=== PATIENT | male | born 1970 | race Caucasian/White ===

== ENCOUNTER 2022-12-13 21:41 | Emergency (ER) | payer SELFPAY ==
[2022-12-13 22:44] LABS: Hematocrit 41.2 % (39.6-49.0); MPV 7.4 fL (7.6-11.3); Platelets 268 thou/uL (152-406); RBC Red Blood Cell Count 4.63 M/uL (4.33-5.43)
[2022-12-13 22:46] LABS: Protime INR 1.13
[2022-12-13 23:03] LABS: Magnesium 2.3 mg/dL (1.6-2.4); Potassium 3.6 mEq/L (3.5-5.1); Troponin High Sensitivity 7.5 pg/mL (<58.9)
[2022-12-13] MEDS ORDERED: KETOROLAC 30 MG/ML INJ ONE (23:36)
[2022-12-13] MEDS ORDERED: NA CHLORIDE 0.9% 1,000 ML ONE (23:36)
--- NOTE | 2022-12-14 01:01 | EDPHYS ---
Physician Documentation [facility] Name: Amilcar Champion Age: 52 yrs Sex: Male : 1970 Arrival Date: 12/13/2022 Time: 21:41 Bed 17 Private MD: ED Physician Brian Tristan HPI: 12/13 22:20 This 52 yrs old Male presents to ER via Ambulatory with complaints of Arm Pain, Flank cp Pain. 22:20 The patient or guardian complains of pain, that is acute, swelling, tenderness. The cp complaints affect the left shoulder and left arm. Historical: - Allergies: 22:09 No Known Allergies; pf1 - PMHx: 22:09 Asthma; pf1 - PSHx: 22:09 None; pf1 - Immunization history:: Adult Immunizations up to date, Client reports having NOT received the Covid vaccine. Last tetanus immunization: < 10 years ago Flu vaccine is not up to date. - Social history:: Smoking status: Patient denies any tobacco usage or history of. Patient/guardian denies using alcohol, street drugs. ROS: 22:25 Constitutional: Negative for body aches, chills, fever, poor PO intake. cp Exam: 22:46 ECG was reviewed by the Attending Physician. cp Vital Signs: 22:03 BP 158 / 107; Pulse 104; Resp 18; Temp 98.4; Pulse Ox 96% on R/A; Weight 68.04 kg; pf1 Height 5 ft. 7 in. ; Pain 7/10; 22:30 BP 155 / 103; Pulse 96; Resp 18 S; Pulse Ox 96% on R/A; ha1 23:09 BP 170 / 95; Pulse 98; Resp 18; Temp 98.1; Pulse Ox 100% ; sm8 23:57 BP 151 / 96; Pulse 85; Resp 18 S; Pulse Ox 98% on R/A; ha1 22:03 Body Mass Index 23.49 (68.04 kg, 170.18 cm) pf1 22:03 Pain Scale: Adult pf1 MDM: 22:04 Patient medically screened. cp 12/13 22:11 Order name: Basic Metabolic Panel; Complete Time: 23:17 cp 12/14 00:35 Interpretation: Normal except: CL 108; GLUC 114; BUN 19; GFR 72; CA 8.3. cp 12/13 22:11 Order name: CBC with Diff; Complete Time: 23:17 cp 12/14 00:35 Interpretation: Abnormal: WBC 11.70; MPV 7.4; NEUT A 8.2. cp 12/13 22:11 Order name: D-Dimer; Complete Time: 23:17 cp 12/14 00:35 Interpretation: Reviewed. cp 12/13 22:11 Order name: Magnesium; Complete Time: 23:17 cp 12/13 22:11 Order name: NT PRO-BNP; Complete Time: 23:17 cp 12/13 22:11 Order name: PT-INR; Complete Time: 23:17 cp 12/13 22:11 Order name: Troponin HS; Complete Time: 23:17 cp 12/13 22:11 Order name: XRAY Chest (1 view) cp 12/13 22:11 Order name: US Extremity Venous Unilateral Ltd cp 12/13 23:19 Order name: CT Chest For PE Angio cp 12/13 22:11 Order name: EKG; Complete Time: 22:12 cp 12/13 22:11 Order name: Cardiac monitoring; Complete Time: 22:36 cp 12/13 22:11 Order name: EKG - Nurse/Tech; Complete Time: 22:42 cp 12/13 22:11 Order name: IV Saline Lock; Complete Time: 22:42 cp 12/13 22:11 Order name: Labs collected and sent; Complete Time: 22:36 cp 12/13 22:11 Order name: O2 Per Protocol; Complete Time: 22:36 cp 12/13 22:11 Order name: O2 Sat Monitoring; Complete Time: 22:36 cp 12/14 00:59 Order name: Sling cp EC:46 Rate is 96 beats/min. Rhythm is regular. VT interval is normal. QRS interval is normal. cp QT interval is normal. T waves are Inverted in lead aVR. Interpreted by me. Reviewed by me. Administered Medications: 23:20 Drug: Ketorolac IVP 15 mg Route: IVP; Site: right forearm; 12/14 01:09 Follow up: Response: No adverse reaction [facility] 12/13 23:20 Drug: NS 0.9% IV 1000 ml Route: IV; Rate: 1 bolus; Site: right forearm; 12/14 01:09 Follow up: Response: No adverse reaction; IV Status: Completed infusion; IV Intake: ha1 1000ml Disposition: 02:28 Co-signature as Attending Physician, Brian Tristan MD I reviewed the patient's care rt provided by the Advanced Practice Provider and agree with the diagnosis and treatment plan. Disposition Summary: 12/14/22 01:01 Discharge Ordered Location: Home cp Problem: new cp Symptoms: have improved cp Condition: Stable cp Diagnosis - Strain of other muscles, fascia and tendons at shoulder and upper arm level, left cp arm - Strain of muscle and tendon of back wall of thorax, initial encounter cp Followup: cp - With: Private Physician - When: 2 - 3 days - Reason: Recheck today's complaints Discharge Instructions: - Discharge Summary Sheet cp - Muscle Strain cp - Thoracic Strain cp Forms: - Medication Reconciliation Form cp - Thank You Letter cp - Antibiotic Education cp - Prescription Opioid Use cp - Patient Portal Instructions cp - Leadership Thank You Letter cp Prescriptions: - Cyclobenzaprine 10 mg Oral Tablet - take 1 tablet by ORAL route every 8 hours As needed; 30 tablet; Refills: 0, cp Product Selection Permitted - Diclofenac Sodium 75 mg Oral Tablet Sustained Release - take 1 tablet by ORAL route 2 times per day; 30 tablet; Refills: 0, Product cp Selection Permitted Addendum: 12/15/2022 01:00 Addendum: HPI: Patient is a 52-year-old male with past medical history significant for c p asthma. Patient presents to the emergency department with complaints of pain and swelling to left arm and left side of chest. Patient reports 4 to 5 days ago he was changing the brakes on his truck and as he lifted one of the large tires and turned felt a pop in his left upper back. Patient reports he had some pain that has continued to progress over the last several days, he has had swelling of his left arm and comes in concerned about a possible blood clot. Patient denies any direct trauma. Signatures: Dispatcher [employer] EDMS Keith Steiner PA PA cp Vivi Iglesias RN RN ha1 Brian Tristan MD MD rt Margy Leblanc RN RN pf1
--- NOTE | 2022-12-14 01:01 | ER ---
Nurse's Notes [facility] Name: Amilcar Champion Age: 52 yrs Sex: Male : 1970 Arrival Date: 12/13/2022 Time: 21:41 Bed 17 Private MD: Diagnosis: Strain of other muscles, fascia and tendons at shoulder and upper arm level, left arm;Strain of muscle and tendon of back wall of thorax, initial encounter Presentation: 12/13 22:03 Chief complaint: Patient states: bruising to left arm/bicep with pain and swelling and pf1 contusion to left lower lateral rib cage,onset 4-5 days ago. Patient stated was changing his brakes on his truck when he felt a pop from left shoulder. Patient denies any injury. Coronavirus screen: Vaccine status: Patient reports being unvaccinated. Client denies travel out of the [place] in the last 14 days. At this time, the client does not indicate any symptoms associated with coronavirus-19. Ebola Screen: Patient negative for fever greater than or equal to 101.5 degrees Fahrenheit, and additional compatible Ebola Virus Disease symptoms. Initial Sepsis Screen: Does the patient meet any 2 criteria? HR > 90 bpm. Does the patient have a suspected source of infection? No. Patient's initial sepsis screen is negative. Risk Assessment: Do you want to hurt yourself or someone else? Patient reports no desire to harm self or others. 22:03 Method Of Arrival: Ambulatory pf1 22:03 Acuity: BARBARA 3 pf1 Triage Assessment: 21:54 General: Appears comfortable, Behavior is calm, cooperative. Pain: Complains of pain in ha1 left arm Pain does not radiate. Pain currently is 9 out of 10 on a pain scale. Quality of pain is described as pressure, Pain began five days ago. Neuro: Level of Consciousness is awake, alert, obeys commands, Oriented to person, place, time, situation. Cardiovascular: Heart tones S1 S2 present Capillary refill < 3 seconds Patient's skin is warm and dry. Rhythm is sinus rhythm. Respiratory: Airway is patent Respiratory effort is even, unlabored, Respiratory pattern is regular, symmetrical. Musculoskeletal: Range of motion: limited in left shoulder Reports pain in left arm. Historical: - Allergies: 22:09 No Known Allergies; pf1 - PMHx: 22:09 Asthma; pf1 - PSHx: 22:09 None; pf1 - Immunization history:: Adult Immunizations up to date, Client reports having NOT received the Covid vaccine. Last tetanus immunization: < 10 years ago Flu vaccine is not up to date. - Social history:: Smoking status: Patient denies any tobacco usage or history of. Patient/guardian denies using alcohol, street drugs. Screenin:11 [facility] ED Fall Risk Assessment (Adult) History of falling in the last 3 months, pf1 including since admission No falls in past 3 months (0 pts) Confusion or Disorientation No (0 pts) Intoxicated or Sedated No (0 pts) Impaired Gait No (0 pts) Mobility Assist Device Used No (0 pt) Altered Elimination No (0 pt) Score/Fall Risk Level 0 - 2 = Low Risk Oriented to surroundings, Maintained a safe environment, Educated pt \T\ family on fall prevention, incl call for assistance when getting out of bed, Assessed \T\ reinforced patient's understanding of fall precautions, Provided non-skid footwear, Hourly rounding (assess needs \T\ fall precautionary measures) done, Used ambulatory aids as needed (educated on \T\ assisted with), Used gait belt as appropriate. Abuse screen: Denies threats or abuse. Nutritional screening: No deficits noted. Tuberculosis screening: No symptoms or risk factors identified. Assessment: 21:57 Reassessment: see triage assessment. ha1 22:50 Reassessment: Patient and/or family updated on plan of care and expected duration. Pain ha1 level reassessed. Patient is alert, oriented x 3, equal unlabored respirations, skin warm/dry/pink. 23:35 Reassessment: Patient and/or family updated on plan of care and expected duration. Pain ha1 level reassessed. Patient is alert, oriented x 3, equal unlabored respirations, skin warm/dry/pink. back from CT. 12/14 00:35 Reassessment: Patient and/or family updated on plan of care and expected duration. Pain ha1 level reassessed. Patient is alert, oriented x 3, equal unlabored respirations, skin warm/dry/pink. Vital Signs: 12/13 22:03 BP 158 / 107; Pulse 104; Resp 18; Temp 98.4; Pulse Ox 96% on R/A; Weight 68.04 kg; pf1 Height 5 ft. 7 in. ; Pain 7/10; 22:30 BP 155 / 103; Pulse 96; Resp 18 S; Pulse Ox 96% on R/A; ha1 23:09 BP 170 / 95; Pulse 98; Resp 18; Temp 98.1; Pulse Ox 100% ; sm8 23:57 BP 151 / 96; Pulse 85; Resp 18 S; Pulse Ox 98% on R/A; ha1 22:03 Body Mass Index 23.49 (68.04 kg, 170.18 cm) pf1 22:03 Pain Scale: Adult pf1 ED Course: 21:46 Patient arrived in ED. es 21:49 Keith Steiner PA is PHCP. cp 21:50 Brian Tristan MD is Attending Physician. cp 21:55 Patient has correct armband on for positive identification. Placed in gown. Bed in low ha1 position. Call light in reach. Side rails up X 1. 22:09 Triage completed. pf1 22:15 Inserted saline lock: 22 gauge in right forearm, using aseptic technique. Blood ha1 collected. 22:18 Vivi Iglesias, RN is Primary Nurse. ha1 22:36 Basic Metabolic Panel Sent. ha1 22:36 CBC with Diff Sent. ha1 22:36 D-Dimer Sent. ha1 22:36 Magnesium Sent. ha1 22:36 NT PRO-BNP Sent. ha1 22:36 PT-INR Sent. ha1 22:36 Troponin HS Sent. ha1 22:42 Basic Metabolic Panel Sent. ha1 22:42 CBC with Diff Sent. ha1 22:42 D-Dimer Sent. ha1 22:42 Magnesium Sent. ha1 22:42 NT PRO-BNP Sent. ha1 22:42 PT-INR Sent. ha1 22:42 Troponin HS Sent. ha1 22:49 US Extremity Venous Unilateral Ltd In Process Unspecified. EDMS 22:52 XRAY Chest (1 view) In Process Unspecified. EDMS 23:45 CT Chest For PE Angio In Process Unspecified. EDMS 08 01:17 No provider procedures requiring assistance completed. ha1 01:17 IV discontinued, intact, bleeding controlled, No redness/swelling at site. Pressure ha1 dressing applied. Administered Medications: 12/13 23:20 Drug: Ketorolac IVP 15 mg Route: IVP; Site: right forearm; ha1 08/21 01:09 Follow up: Response: No adverse reaction ha1 12/13 23:20 Drug: NS 0.9% IV 1000 ml Route: IV; Rate: 1 bolus; Site: right forearm; ha1 12/14 01:09 Follow up: Response: No adverse reaction; IV Status: Completed infusion; IV Intake: ha1 1000ml Medication: 01:17 VIS not applicable for this client. ha1 Intake: 01:09 IV: 1000ml; Total: 1000ml. ha1 Outcome: 01:01 Discharge ordered by . jose 01:17 Patient left the ED. ha1 01:17 Discharged to home ambulatory. ha1 01:17 Condition: stable 01:17 Discharge instructions given to patient, Instructed on discharge instructions, follow up and referral plans. medication usage, Demonstrated understanding of instructions, follow-up care, medications, Prescriptions given X 2. Signatures: Dispatcher [employer] Batsheva Briseno Corey, PA PA cp Ayala, Heidy, RN RN 1 Margy Leblanc RN RN 1 Shanice Garcia 8 Corrections: (The following items were deleted from the chart) 12/13 23:57 23:30 Reassessment: Patient and/or family updated on plan of care and expected ha1 duration. Pain level reassessed. Patient is alert, oriented x 3, equal unlabored respirations, skin warm/dry/pink. back from CT ha1
[2022-12-14 01:56] VITALS: TEMP 98.1
[2022-12-14 01:58] VITALS: BP 151/96; O2SAT 98
--- NOTE | 2022-12-14 14:45 | RAD REPORT ---
EXAM DESCRIPTION: CT - Chest For Pe Angio - 12/14/2022 6:43 am CLINICAL HISTORY: 52 years, Male, left upper back pain COMPARISON: None. TECHNIQUE: Multiple transaxial tomograms of the chest were obtained from the lung apices through the lung bases utilizing 2 mm slice thickness at 2 mm interval reconstruction after the administration o f large bolus of IV contrast for complete opacification of the pulmonary arteries. Subsequent 3-D maximum intensity projection images were generated in the coronal and sagittal plane f or review. This exam was performed according to our departmental dose-optimization protocol, which includes auto mated exposure control, adjustment of the mA and/or kV according to patient size and/or use of iterat shahid reconstruction technique. FINDINGS: The lungs parenchyma demonstrate demonstrate to be clear. No masses, nodules and/or consol idations are identified. The trachea mainstem bronchus demonstrate to be normal. There is no significant pericardial or pleura l effusions. The thoracic aorta demonstrate to be unremarkable. The heart is normal in size. There are very minima l coronary artery calcification LAD. There is no significant mediastinal and/or hilar lymphadenopathy. The axillary regions demonstrate to be clear. Pulmonary arteries demonstrate to be normal, no intraluminal defect are seen that would suggest pulmo nary embolus. The bone windows demonstrate no significant skeletal lesions. The visualized portions of the upper abdomen demonstrate to be unremarkable. IMPRESSION: No evidence of pulmonary embolus and/or thoracic aortic dissection. Otherwise unremarkable CT scan of the chest with contrast. Electronically signed by: Jefry Centeno MD 12/13/2022 11:54 PM CDT Due to temporary technical issues with the PACS/Fluency reporting system, reports are being signed by the in house radiologist without review as a courtesy to ensure prompt reporting. The interpreting r adiologist is fully responsible for the content of the report.
--- NOTE | 2022-12-14 14:48 | RAD REPORT ---
EXAM DESCRIPTION: US - Extremity Venous Uni Ltd - 12/13/2022 10:47 pm CLINICAL HISTORY: 52 years Male, Pain;Swelling left upper extremity swelling TECHNIQUE: Malloy scale ultrasound, color Doppler and spectral Doppler were utilized to evaluate the l eft upper extremity deep venous systems. COMPARISON: None. FINDINGS: There is normal color filling, compression and respiratory variation in the visualized lef t internal jugular vein. There is normal color filling and respiratory variation in the left subclavi an vein. The left axillary and brachial vein has normal color filling and compression. Radial and u lnar veins are patent. Patent basilic and cephalic veins with normal compression and normal directional flow. Note that t he basilic and cephalic veins are part of the superficial venous system of the upper extremity. IMPRESSION: 1. No evidence for deep venous thrombosis of left upper extremity. Electronically signed by: Fransisco iWlburn MD 12/13/2022 11:17 PM CDT Due to temporary technical issues with the PACS/Fluency reporting system, reports are being signed by the in house radiologist without review as a courtesy to ensure prompt reporting. The interpreting r adiologist is fully responsible for the content of the report.
--- NOTE | 2022-12-14 14:49 | RAD REPORT ---
EXAM DESCRIPTION: RAD - Chest Single View - 12/13/2022 10:50 pm CLINICAL HISTORY: 52 years, Male, left arm swelling COMPARISON: None. FINDINGS: Single view of the chest was obtained portable. Prior films were compared. films are avail able for comparison. The cardiomediastinal silhouette demonstrate to be unremarkable. The heart is no t enlarged. The thoracic aorta is unremarkable. The pulmonary vasculature is normal distribution. Cos tophrenic angles are sharp. No areas of consolidation or masses are seen. Minimal deformity of the posterior lateral right ribs corresponding to old healed fractures. The rest of the soft tissue and b isha structures demonstrate to be unremarkable. IMPRESSION: NO ACUTE CARDIOPULMONARY DISEASE SEEN. Electronically signed by: Jefry Centeno MD 12/13/2022 11:46 PM CDT Due to temporary technical issues with the PACS/Fluency reporting system, reports are being signed by the in house radiologist without review as a courtesy to ensure prompt reporting. The interpreting r adiologist is fully responsible for the content of the report.
--- NOTE | 2022-12-14 17:57 | EKG ---
Test Date: 2022-12-13 Test Time: 22:40:18 Enterprise Resource Planning Consultant: LEATHA MEASUREMENT RESULTS: Intervals: Rate: 96 AR: 174 QRSD: 86 QT: 348 QTc: 439 [place]: P: 71 AR: 174 QRS: 98 T: 45 INTERPRETIVE STATEMENTS: Normal sinus rhythm Septal infarct, age undetermined Abnormal ECG No previous ECG available for comparison Electronically Signed On 12-14-22 17:56:00 CDT by Trace Chaidze
== END 2022-12-14 01:17 | disposition home or self-care (01) ==
LOC: ER 21:41
DX: S46.812A Strain of other muscles, fascia and tendons at shoulder and upper arm level, left arm, initial encounter (principal)
CPT/HCPCS: 36415; 71045; 71275; 80048; 83735; 83880; 84484; 85025; 85379; 85610; 93005; 93971; 96361; 96374; 99284; J7030; Q9967